=== PATIENT | male | born 1980 | race Caucasian/White ===

== ENCOUNTER 2019-01-31 10:00 | Emergency (ER) | payer SELFPAY ==
[~2019-01-31] VITALS: Ht 180.3 cm; Wt 63.5 kg
[2019-01-31 10:00] VITALS: BP_SYST 143
[2019-01-31] MEDS ORDERED: PROPARACAINE (OPTHANINE 0.5%) 15 ML DROPS OP ONE (10:15)
[2019-01-31 10:25] VITALS: BP_SYST 143
== END 2019-01-31 10:25 ==
LOC: SED 10:00
DX: Z77.098 Contact with and (suspected) exposure to other hazardous, chiefly nonmedicinal, chemicals (principal)
CPT/HCPCS: 99283